=== PATIENT | male | born 1985 | race American Indian/Alaskan Native ===

== ENCOUNTER 2021-08-07 08:41 | Outpatient (CLI) | payer OTHER ==
[2021-08-07] MEDS ORDERED: NITROGLYCERIN 0.4 MG TAB SUBL SL PRN (10:00)
[2021-08-07] MEDS ORDERED: ATROPINE 0.1% (1 MG/10 ML) CARDIAC SYRINGE IV SCH (10:00)
[2021-08-07] MEDS ORDERED: METOPROLOL TARTRATE 5 MG/5 ML INJ IV ONE (10:05)
[2021-08-07 10:14] VITALS: BP 124/78
[2021-08-07] MEDS ORDERED: METOPROLOL TARTRATE 50 MG TAB PO ONE (11:00)
[2021-08-07 11:22] LABS: Blood Urea Nitrogen 11 mg/dL (9-20)
== END 2021-08-07 08:42 | disposition home or self-care (01) ==
LOC: CT 08:41
PROVIDERS: ATTEND Internal Medicine Cardiovascular Disease
DX: R94.39 Abnormal result of other cardiovascular function study (principal)
CPT/HCPCS: 36415; 82565; 84520; J0461

== ENCOUNTER 2021-08-21 07:57 | Outpatient (CLI) | payer OTHER ==
[2021-08-21] MEDS ORDERED: METOPROLOL TARTRATE 50 MG TAB ONE (09:14)
[2021-08-21] MEDS ORDERED: METOPROLOL TARTRATE 50 MG TAB PO ONE (09:15)
[2021-08-21 09:31] LABS: Blood Urea Nitrogen 11 mg/dL (9-20)
[2021-08-21] MEDS ORDERED: NITROGLYCERIN 0.4 MG TAB SUBL SL ONE (10:27)
[2021-08-21] MEDS ORDERED: ATROPINE 0.1% (1 MG/10 ML) CARDIAC SYRINGE ONE (10:29)
[2021-08-21] MEDS ORDERED: METOPROLOL TARTRATE 5 MG/5 ML INJ IV ONE (10:29)
--- NOTE | 2021-08-21 12:53 | Cat Scan Report ---
CTA HEART OVER-READ TECHNIQUE: All CT scans at this location are performed using CT dose reduction for ALARA by means of automated e xposure control. COMPARISON: None available. FINDINGS: LUNGS BASES: No significant abnormality. SOFT TISSUES: No significant abnormality. SKELETAL STRUCTURES: No acute osseous abnormality. ADDITIONAL FINDINGS: None. IMPRESSION: 1. No significant extracardiac abnormality. Cardiac findings reported separately by Cardiology. Signer Name: Joel Guo MD Signed: 08/21/2021 12:49 PM Workstation Name: [id number]
[2021-08-21 13:00] VITALS: BP 134/79
--- NOTE | 2021-08-23 07:18 | CT Calcium Scoring Report ---
Coronary Calcium Score Date of service: 08/23/21 Procedure: High-resolution computed tomographic imaging of the chest was performed on08/21/21 with particular attention paid to the coronary arteries. Images from the examination were analyzed for the presence and extent of coronary artery calcification, using coronary calcium quantification software. The patient tolerated the procedure well and there were no complications. The results of the coronary calcification analysis are provided below. The patient scores are compared with published data related to scores for people of a similar age and the same gender. - Findings Right Coronary Artery(RCA): 35.8 Percentile Rankinth Findings: Cardiac CTA Indication: chest pain Informed consent obtained Procedure: The patient was brought to the cardiac ct laboratory at [facility] in stable condition after a 4 hour fast. Heart rate was regulated by beta blockade. Sublingual ngt was administered. After data acquisition and reconstruction, the images were processed and reviewed on the computer workstation. Multiple phases of the cardiac cycle were assessed for image interpretation. Volume rendered images, multiplanar reformated images, and maximum intensity projections images were generated and reviewed A coronary calcium score was performed via the Agatston method. A separate radiology assessment of the non cardiac structures in the field of view will be provided. Superior vena cava in the field of view appears normal Inferior vena cava in the filed of view appears normal Ascending aorta in the field of view appears normal Descending aorta in the field of view appears normal Pulmonary artery in the filed of view appears normal Pulmonary veins enter the left atrium appropriately Left ventricle appears normal Right Ventricle appears normal Left atrium appears normal Left atrial appendage appears normal Right atrium appears normal Interventricular septum appears normal Interatrial septum appears normal Aortic valve appears normal Mitral Valve appears normal Intracardiac mass: none Pericardial effusion: none Coronary Angiography: Dominance:righ coronary artery Origins: normal Left main: normal Left anterior descending coronary artery and diagonal branches: normal Circumflex coronary artery and obtuse marginal branches: normal Right coronary artery: non obstructrive calcific plaque in distal vessel
== END 2021-08-21 11:15 | disposition home or self-care (01) ==
LOC: CT 07:57 → CATHLABREC 07:57
PROVIDERS: ATTEND Internal Medicine Cardiovascular Disease
DX: R94.39 Abnormal result of other cardiovascular function study (principal)
CPT/HCPCS: 36415; 75574; 82565; 84520; Q9967; J0461